=== PATIENT | female | born 1965 | race Caucasian/White ===

== ENCOUNTER → 2016-12-17 | Outpatient (CLI) | payer BC, OTHER ==
[~2016-12-17] MED LIST: BENZ56AE TP; DCS100C PO; ESTR2TAB PO; FLC100T1 PO; HYDR-3720 PO; IBP800T PO; TRM50T PO
--- NOTE | 2016-12-19 09:31 | Diagnostic Imaging Report ---
EXAMINATION: Bilateral screening mammogram 2D views with tomosynthesis. The current study was also evaluated with a Computer Aided Detection (CAD) system. INDICATION: Screening. PERSONAL HISTORY: No current complaints stated on the questionnaire. COMPARISON: 09/18/2015. FINDINGS: The breasts are composed of heterogeneously dense parenchyma which may decrease mammographic sensitivity. Benign-appearing calcifications are seen. Allowing for technique and positional differences, no suspicious change is seen. IMPRESSION: No significant change. ACR BI-RADS Category 2: Benign findings. Result letter will be mailed to the patient. Note: At least 10% of breast cancer is not imaged by mammography. Dictated by: Dictated on workstation # [id number]
== END ==
LOC: RAD 14:24
PROVIDERS: ATTEND Family Medicine
DX: Z12.31 Encounter for screening mammogram for malignant neoplasm of breast (principal)
CPT/HCPCS: 77067

== ENCOUNTER 2017-06-08 05:39 | Outpatient (CLI) | payer BC, OTHER ==
[~2017-06-08] VITALS: Ht 160 cm; Wt 58.1 kg
== END 2017-06-08 13:45 ==
LOC: PREOP 05:39
PROVIDERS: ATTEND Surgery
DX: Z01.818 Encounter for other preprocedural examination (principal); K62.89 Other specified diseases of anus and rectum; L29.9 Pruritus, unspecified

== ENCOUNTER 2017-06-10 07:28 | Day surgery (SDC) | payer BC, OTHER ==
[~2017-06-10] VITALS: Ht 160 cm; Wt 58.1 kg
[2017-06-10] MEDS ORDERED: LACTATED RINGERS 1,000 ML IV PRN (07:39)
[2017-06-10 07:45] VITALS: BP 94/59
[2017-06-10] MEDS ORDERED: ceFAZolin INJECTION 1,000 MG in NS (IVPB) 100 ML IV ONE (07:45)
[2017-06-10] MEDS ORDERED: BUP/EPI 0.5% 1:200,000 (SENSORCAINE) 30 ML VIAL ONE (08:40)
[2017-06-10] MEDS ORDERED: proPOfol 200 MG/20 ML (DIPRIVAN) VIAL IV ONE (09:19)
[2017-06-10] MEDS ORDERED: MIDAZOLAM 2 MG/2 ML (VERSED) VIAL ONE (09:20)
[2017-06-10] MEDS ORDERED: LIDOCAINE PF 2% 5 ML (XYLOCAINE) VIAL ONE (09:52)
--- NOTE | 2017-06-10 10:06 | Progress Note-Pre Operative ---
Pre-Operative Progress Note H&P Reviewed The H&P was reviewed, patient examined and no changes noted. Date Seen by Provider: Jun 04, 2017 Time Seen by Provider: 14:00 Date H&P Reviewed: Jun 10, 2017 Time H&P Reviewed: 10:06 Pre-Operative Diagnosis: Anal lesion BINH CASTILLO MD Jun 10, 2017 10:06 am
--- NOTE | 2017-06-10 10:39 | Operative Report ---
Operative Report Date of Procedure/Surgery Jun 10, 2017 Surgeon (s) BINH CASTILLO MD Hr Clerk (s): N/A Post-Operative Diagnosis Anal skin lesion at 8 o'clock position. Normal flexible sigmoidoscopy Procedure Performed Exam under anesthetic Flexible sigmoidoscopy Wedge biopsy of anal skin Description of Procedure Anesthesia Type: MAC Estimated blood loss (mL): None Specimen(s) collected/removed Anal skin Description of the Procedure Indication for the procedure: This lady presented with chronic pruritus ani and a very small skin nodule over the perianal region, at about 8 o'clock position. She had undergone colonoscopy two years ago with no polyps She was offered an examination under anesthetic to identify the possible pathology, flexible sigmoidoscopy to rule out rectal lesions and perform a wedge biopsy of the anal skin margin. Informed consent was obtained after reviewing the procedure in detail. Description of the procedure: She was initially placed supine on the operating table and our COOK ENCHILADA administered sedation, monitoring her vital signs. Ancef 1 g was administered intravenously as prophylaxis against wound infection and subsequently, she was placed in combined lithotomy position, her legs being supported on stirrups. Exam under anesthetic: Mild degree of external hemorrhoids and a 3 mm skin nodule at 8 o'clock position were identified. Rectal examination was unremarkable. Flexible sigmoidoscopy: The scope was introduced into the rectum and advanced to the sigmoid colon. It was then withdrawn slowly and the mucosa examined in a systematic fashion. Finding: A very mild degree of internal hemorrhoids. No polyps were found Wedge biopsy of anal skin: 0.5 percent Marcaine with epinephrine was infiltrated subcutaneously at about 8 o'clock position and a wedge of skin, about 3 mm long by 2 mm in width excised. Hemostasis was achieved using cautery and the defect closed with interrupted 4-0 vicryl sutures. A nonadherent dressing was then applied She tolerated the procedure well and was taken back to the nursing area in a stable condition. Findings of the Procedure See op report Allergies and Home Medications Allergies Coded Allergies: No Known Drug Allergies (Unverified , 06/08/17) Home Medications Estradiol 2 Mg Tablet, 2 MG PO BID, (Reported) Patient Home Medication List Home Medication List Reviewed: Yes BINH CASTILLO MD Jun 10, 2017 10:39 am
--- NOTE | 2017-06-10 10:40 | Discharge Inst-Simple/Standard ---
Discharge Inst-Standard Discharge Medications New, Converted or Re-Newed RX: Other Patient Instructions/Follow Up Plan of Care/Instructions/FU: We will call with pathology reports. Activity as Tolerated: Yes Discharge Diet: No Restrictions BINH CASTILLO MD Jun 10, 2017 10:40 am
[2017-06-10] MEDS ORDERED: MEPERIDINE (DEMEROL) INJ 50 MG/ML IVP PRN (10:45)
[2017-06-10] MEDS ORDERED: morphine INJ 10 MG/ML 1ML (SYR OR VIAL) IVP PRN (10:45)
[2017-06-10] MEDS ORDERED: ONDANSETRON 4 MG/2 ML (SDV) Z0FRAN IVP PRN (10:45)
[2017-06-10 11:25] VITALS: BP 105/66
[2017-06-10 11:26] VITALS: BP 105/66
[2017-06-10 11:55] VITALS: BP 106/64
--- NOTE | 2017-06-10 14:01 | Anesthesia-General Post-Op ---
MAC Patient Condition Mental Status/LOC: Same as Preop Cardiovascular: Satisfactory Nausea/Vomiting: Absent Respiratory: Satisfactory Pain: Controlled Complications: Absent Post Op Complications Complications None Follow Up Care/Instructions Patient Instructions None needed. Anesthesiology Discharge Order Discharge Order Patient is doing well, no complaints, stable vital signs, no apparent adverse anesthesia problems. No complications reported per nursing. MEMO JACOB CRNA Jun 10, 2017 14:01
--- OUTSIDE RECORDS SUMMARY | 2017-06-11 09:09 | XMS REPORT | Continuity of Care Document ---
Author Author [facility] Organization [facility] Address Unknown Phone Unavailable Allergies Active Description Code Type Severity Reaction Onset Reported/Identified Relationship to Patient Clinical Status Yes No Known Drug Allergies [id number] Drug Allergy Unknown N/A 06/08/2017 Medications There is no data. 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 08/24/2013 JOHN MARIO MD, Ot 218.2 SUBSEROUS LEIOMYOMA 08/24/2013 JOHN MARIO MD Ot 285.9 ANEMIA NOS 08/24/2013 JOHN MARIO MD Ot 617.0 UTERINE ENDOMETRIOSIS 08/24/2013 JOHN MARIO MD, Ot 617.1 OVARIAN ENDOMETRIOSIS 08/24/2013 JOHN MARIO MD, Ot 617.3 PELV PERIT ENDOMETRIOSIS 08/24/2013 JOHN MARIO MD, Ot 618.4 UTERVAGINAL PROLAPSE NOS 08/24/2013 JOHN MARIO MD Ot 620.1 CORPUS LUTEUM CYST 08/24/2013 JOHN MARIO MD Ot 625.6 FEM STRESS INCONTINENCE 08/24/2013 JOHN MARIO MD Ot 629.89 OTHER SPECIFIED DISORDERS OF FEMALE CLARK 08/24/2013 JOHN MARIO MD Ot 709.09 OTHER DYSCHROMIA 08/24/2013 JOHN MARIO MD Ot 788.20 RETENTION OF URINE NOS 08/28/2013 JOHN MARIO MD Ot 276.8 HYPOPOTASSEMIA 08/28/2013 JOHN MARIO MD, Ot 285.9 ANEMIA NOS 08/28/2013 JOHN MARIO MD Tamara Ot 560.1 PARALYTIC ILEUS 08/28/2013 SHELBI TILLMAN, JOHN Tamara Ot 564.00 UNSPEC CONSTIPATION 08/28/2013 SHELBI TILLMAN, JOHN Tamara Ot 788.20 RETENTION OF URINE NOS 09/07/2014 NAOMI KNIGHT THERAPEUTIC CASE MANAGER Ot V76.12 09/25/2014 Ot V76.12 09/25/2014 Ot 715.31 09/25/2014 Ot V76.12 09/25/2014 Ot 793.82 09/25/2014 Ot V76.12 09/25/2014 NAOMI KNIGHT [facility] Ot V76.12 09/25/2014 SHELBI TILLMAN, JOHN Tamara Ot 218.9 09/25/2014 SHELBI TILLMAN, JOHN Mcdonald Ot 285.9 09/25/2014 SHELBI TILLMAN, JOHN Mcdonald Ot 618.4 09/25/2014 SHELBI TILLMAN, JOHN Mcdonald Ot 625.6 09/25/2014 SHELBI TILLMAN, JOHN Mcdonald Ot V72.63 09/25/2014 SHELBI TILLMAN, JOHN Mcdonald Ot V74.8 09/25/2014 NAOMI KNIGHTP Ot V76.12 05/04/2015 DRISS TILLMAN, OLIVER Bhatt Ot 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 05/04/2015 DRISS TILLMAN, OLIVER Bhatt Ot K63.3 ULCER OF INTESTINE 05/04/2015 DRISS TILLMAN, OLIVER Bhatt Ot Z12.11 ENCOUNTER FOR SCREENING FOR MALIGNANT NE 05/04/2015 DRISS TILLMAN, OLIVER Bhatt Ot Z80.0 FAMILY HISTORY OF MALIGNANT NEOPLASM OF 05/24/2015 OLIVER NAQVI MD Ot D17.5 05/24/2015 OLIVER NAQVI MD Ot K63.3 05/24/2015 OLIVER NAQVI MD Ot Z12.11 05/24/2015 OLIVER NAQVI MD Ot Z80.0 12/20/2015 PEREZ DIAZ APRN Ot Z12.31 ENCNTR SCREEN MAMMOGRAM FOR MALIGNANT NE 07/13/2016 Ot V76.12 OT SCREEN MAMMO-MALIGN NEOPLASM OF KP 07/13/2016 Ot 793.82 INCONCLUSIVE MAMMOGRAM 07/13/2016 Ot V76.12 OTH SCREEN MAMMO-MALIGN NEOPLASM OF KP 07/13/2016 NAOMI KNIGHT Ot V76.12 OTH SCREEN MAMMO-MALIGN NEOPLASM OF KP 07/13/2016 JOHN MARIO MD Ot 218.9 UTERINE LEIOMYOMA NOS 07/13/2016 JOHN MARIO MD Ot 285.9 ANEMIA NOS 07/13/2016 JOHN MARIO MD Ot 618.4 UTERVAGINAL PROLAPSE NOS 07/13/2016 JOHN MARIO MD Ot 625.6 FEM STRESS INCONTINENCE 07/13/2016 JOHN MARIO MD Ot V72.63 PRE-PROCEDURAL LABORATORY EXAMINATION 07/13/2016 JOHN MARIO MD Ot V74.8 SCREEN-BACTERIAL DIS NEC 07/13/2016 NAOMI KNIGHT Ot V76.12 OTH SCREEN MAMMO-MALIGN NEOPLASM OF KP 07/13/2016 DRISS TILLMAN, OLIVER Bhatt Ot Z01.818 ENCOUNTER FOR OTHER PREPROCEDURAL EXAMIN 07/13/2016 DRISS TILLMAN, OLIVER Bhatt Ot Z12.11 ENCOUNTER FOR SCREENING FOR MALIGNANT NE 07/13/2016 DRISS TILLMAN, OLIVER Bhatt Ot Z80.0 FAMILY HISTORY OF MALIGNANT NEOPLASM OF 07/13/2016 PEREZ DIAZ APRN Ot Z12.31 ENCNTR SCREEN MAMMOGRAM FOR MALIGNANT NE 12/12/2016 Ot 793.82 INCONCLUSIVE MAMMOGRAM 12/12/2016 Ot V76.12 OTH SCREEN MAMMO-MALIGN NEOPLASM OF KP 12/12/2016 NAOMI KNIGHT Ot V76.12 OTH SCREEN MAMMO-MALIGN NEOPLASM OF KP 12/12/2016 JOHN MARIO MD Ot 218.9 UTERINE LEIOMYOMA NOS 12/12/2016 JOHN MARIO MD Ot 285.9 ANEMIA NOS 12/12/2016 JOHN MARIO MD Ot 618.4 UTERVAGINAL PROLAPSE NOS 12/12/2016 JOHN MARIO MD Ot 625.6 FEM STRESS INCONTINENCE 12/12/2016 JOHN MARIO MD Ot V72.63 PRE-PROCEDURAL LABORATORY EXAMINATION 12/12/2016 JOHN MARIO MD Ot V74.8 SCREEN-BACTERIAL DIS NEC 12/12/2016 NAOMI KNIGHT Ot V76.12 OTH SCREEN MAMMO-MALIGN NEOPLASM OF KP 12/12/2016 OLIVER NAQVI MD Ot Z01.818 ENCOUNTER FOR OTHER PREPROCEDURAL EXAMIN 12/12/2016 OLIVER NAQVI MD Ot Z12.11 ENCOUNTER FOR SCREENING FOR MALIGNANT NE 12/12/2016 OLIVER NAQVI MD Ot Z80.0 FAMILY HISTORY OF MALIGNANT NEOPLASM OF 12/12/2016 PEREZ DIAZ HAWK MISSILE SYSTEM CREWMEMBER Ot Z12.31 ENCNTR SCREEN MAMMOGRAM FOR MALIGNANT NE 12/15/2016 Ot 793.82 INCONCLUSIVE MAMMOGRAM 12/15/2016 Ot V76.12 OTH SCREEN MAMMO-MALIGN NEOPLASM OF KP 12/15/2016 NAOMI KNIGHT Ot V76.12 OTH SCREEN MAMMO-MALIGN NEOPLASM OF KP 12/15/2016 JOHN MARIO MD Ot 218.9 UTERINE LEIOMYOMA NOS 12/15/2016 SHELBI TILLMAN, JOHN Mcdonald Ot 285.9 ANEMIA NOS 12/15/2016 JOHN MARIO MD Ot 618.4 UTERVAGINAL PROLAPSE NOS 12/15/2016 JOHN MARIO MD Ot 625.6 FEM STRESS INCONTINENCE 12/15/2016 JOHN MARIO MD Ot V72.63 PRE-PROCEDURAL LABORATORY EXAMINATION 12/15/2016 JOHN MARIO MD Ot V74.8 SCREEN-BACTERIAL DIS NEC 12/15/2016 NAOMI KNIGHT Ot V76.12 OTH SCREEN MAMMO-MALIGN NEOPLASM OF KP 12/15/2016 OLIVER NAQVI MD Ot Z01.818 ENCOUNTER FOR OTHER PREPROCEDURAL EXAMIN 12/15/2016 OLIVER NAQVI MD Ot Z12.11 ENCOUNTER FOR SCREENING FOR MALIGNANT NE 12/15/2016 OLIVER NAQVI MD Ot Z80.0 FAMILY HISTORY OF MALIGNANT NEOPLASM OF 12/15/2016 PEREZ DIAZ [employer]SI[employer] CREWMEMBER Ot Z12.31 ENCNTR SCREEN MAMMOGRAM FOR MALIGNANT NE 12/31/2016 SHERI TILLMAN, NICHOL See Ot Z12.31 ENCNTR SCREEN MAMMOGRAM FOR MALIGNANT NE 06/10/2017 Ot 793.82 INCONCLUSIVE MAMMOGRAM 06/10/2017 Ot V76.12 OTH SCREEN MAMMO-MALIGN NEOPLASM OF KP 06/10/2017 NAOMI KNIGHT Ot V76.12 OTH SCREEN MAMMO-MALIGN NEOPLASM OF KP 06/10/2017 JOHN MARIO MD Ot 218.9 UTERINE LEIOMYOMA NOS 06/10/2017 SHELBI TILLMAN, JOHN Mcdonald Ot 285.9 ANEMIA NOS 06/10/2017 JOHN MARIO MD Ot 618.4 UTERVAGINAL PROLAPSE NOS 06/10/2017 JOHN MARIO MD Ot 625.6 FEM STRESS INCONTINENCE 06/10/2017 JOHN MARIO MD Ot V72.63 PRE-PROCEDURAL LABORATORY EXAMINATION 06/10/2017 JOHN MARIO MD Ot V74.8 SCREEN-BACTERIAL DIS NEC 06/10/2017 NAOMI KNIGHT Ot V76.12 OTH SCREEN MAMMO-MALIGN NEOPLASM OF KP 06/10/2017 DRISS TILLMAN, OLIVER Bhatt Ot Z01.818 ENCOUNTER FOR OTHER PREPROCEDURAL EXAMIN 06/10/2017 OLIVER NAQVI MD Ot Z12.11 ENCOUNTER FOR SCREENING FOR MALIGNANT NE 06/10/2017 OLIVER NAQVI MD Ot Z80.0 FAMILY HISTORY OF MALIGNANT NEOPLASM OF 06/10/2017 PEREZ DIAZ APRN Ot Z12.31 ENCNTR SCREEN MAMMOGRAM FOR MALIGNANT NE 06/10/2017 SHERI TILLMAN, NICHOL See Ot Z12.31 ENCNTR SCREEN MAMMOGRAM FOR MALIGNANT NE 06/10/2017 JONATHAN TILLMAN, BINH Carey Ot K62.89 OTHER SPECIFIED DISEASES OF ANUS AND REC 06/10/2017 BINH CASTILLO MD Ot L29.9 PRURITUS, UNSPECIFIED 06/10/2017 BINH CASTILLO MD Ot Z01.818 ENCOUNTER FOR OTHER PREPROCEDURAL EXAMIN Procedures There is no data. Results There is no data. Encounters ACCT No. Visit Date/Time Discharge Status Pt. Type Provider Facility Loc./Unit Complaint [id number] 06/10/2017 07:28:00 06/10/2017 12:00:00 DIS Outpatient BINH CASTILLO MD [facility] RECTAL PAIN/PRURITUS [id number] 06/08/2017 05:39:00 06/08/2017 13:45:00 DIS Outpatient BINH CASTILLO MD [facility] PREOP RECTAL PAIN/ PRURITUS [id number] 12/17/2016 14:24:00 12/17/2016 23:59:59 CLS Outpatient NICHOL WADE MD [facility] RAD SCREENING [id number] 12/19/2015 14:36:00 12/19/2015 23:59:59 CLS Outpatient PEREZ DIAZ APRN [facility] RAD SCREENING [id number] 05/04/2015 08:27:00 05/04/2015 11:30:00 DIS Outpatient OLIVER NAQVI MD [facility] SCREENING [id number] 05/02/2015 05:33:00 05/02/2015 23:59:59 CLS Outpatient OLIVER NAQVI MD [facility] PREOP SCREENING [id number] 08/25/2014 13:24:00 08/25/2014 23:59:59 CLS Outpatient NAOIM KNIGHT [facility] RAD SCREENING [id number] 08/26/2013 16:56:00 08/28/2013 14:45:00 DIS Inpatient JOHN MARIO MD [facility] WS LOWER ABD PAIN AND DISTENTION [id number] 08/22/2013 06:08:00 08/24/2013 17:40:00 DIS Outpatient JOHN MARIO MD [facility] UTEROVAGINAL PROLAPSE; STRESS URINARY INCONTINENCE [id number] 08/17/2013 13:21:00 08/17/2013 23:59:59 CLS Outpatient JOHN MARIO MD [facility] PREOP UTEROVAGINAL PROLAPSE; STRESS URINARY INCONTINENCE [id number] 05/02/2013 10:23:00 05/02/2013 23:59:59 CLS Outpatient NAOMI KNIGHT [facility] RAD SCREENING [id number] 03/19/2012 14:01:00 Document Registration [id number] 02/05/2011 15:11:00 Document Registration [id number] 06/07/2010 13:36:00 Document Registration [id number] 04/15/2010 16:30:00 Document Registration [id number] 01/09/2010 13:05:00 Document Registration [id number] 12/01/2016 17:35:37 12/01/2016 23:59:[address] [facility] Outpatient
== END 2017-06-10 12:00 | disposition home or self-care (01) ==
LOC: SDC 07:28
PROVIDERS: ATTEND Surgery
DX: K62.89 Other specified diseases of anus and rectum (principal); L85.9 Epidermal thickening, unspecified; L29.0 Pruritus ani; Z80.0 Family history of malignant neoplasm of digestive organs
CPT/HCPCS: 87081

== ENCOUNTER → 2018-01-29 | Outpatient (CLI) | payer BC, OTHER ==
--- NOTE | 2018-01-29 16:23 | Diagnostic Imaging Report ---
INDICATION: Routine screening. COMPARISON: 12/17/2016 and 12/19/2015. TECHNIQUE: 2D and 3D bilateral screening mammography was performed with CAD. FINDINGS: Both breasts are heterogeneously dense, limiting the sensitivity of mammography. The parenchymal pattern is stable. No mass or malignant appearing microcalcifications are seen. The axillae are unremarkable. IMPRESSION: No mammographic features suspicious for malignancy are identified. ACR BI-RADS Category 1: Negative. Result letter will be mailed to the patient. Note: At least 10% of breast cancer is not imaged by mammography. Dictated by: Dictated on workstation # [id number]
== END ==
LOC: RAD 13:34
PROVIDERS: ATTEND Nurse Practitioner Family
DX: Z12.31 Encounter for screening mammogram for malignant neoplasm of breast (principal)
CPT/HCPCS: 77067

== ENCOUNTER → 2019-02-02 | Outpatient (CLI) | payer BC, OTHER ==
--- NOTE | 2019-02-02 18:26 | Diagnostic Imaging Report ---
INDICATION: Routine screening. Comparison is made with prior mammograms from 01/29/2018 and 12/17/2016. 2-D and 3-D bilateral screening mammography was performed. The current study was also evaluated with a Computer Aided Detection (CAD) system. 3-D tomosynthesis was also performed and reviewed. FINDINGS: Both breasts remain heterogeneously dense, limiting the sensitivity of mammography. No mass or malignant-appearing microcalcifications are seen. Axillae are unremarkable. IMPRESSION: No mammographic features suspicious for malignancy are identified. ACR BI-RADS Category 1: Negative. Result letter will be mailed to the patient. Note: At least 10% of breast cancer is not imaged by mammography. Dictated by: Dictated on workstation # [id number]
== END ==
LOC: RAD 14:32
PROVIDERS: ATTEND Obstetrics & Gynecology
DX: Z12.31 Encounter for screening mammogram for malignant neoplasm of breast (principal)
CPT/HCPCS: 77067

== ENCOUNTER → 2020-02-29 | Outpatient (CLI) | payer OTHER ==
--- NOTE | 2020-02-29 10:26 | Diagnostic Imaging Report ---
Indication: Routine screening. Correlation is made with prior mammogram from 02/02/2019, 01/29/2018. 2-D and 3-D bilateral screening mammography was performed with CAD. Both breasts are heterogeneously dense, limiting the sensitivity of mammography. No mass or malignant appearing microcalcifications are seen. Axillae are unremarkable. IMPRESSION: BI-RADS Category 1 No mammographic features suspicious for malignancy are identified. ACR BI-RADS Category 1: Negative. Result letter will be mailed to the patient. Note: At least 10% of breast cancer is not imaged by mammography. Dictated by: Dictated on workstation # [id number]
== END ==
LOC: RAD 07:17
PROVIDERS: ATTEND Nurse Practitioner Family
DX: Z12.31 Encounter for screening mammogram for malignant neoplasm of breast (principal)
CPT/HCPCS: 77063; 77067

== ENCOUNTER → 2021-04-19 | Outpatient (CLI) | payer OTHER ==
[~2021-04-19] MED LIST changes: -ESTR2TAB PO; +ESTR2TAB3 PO
--- NOTE | 2021-04-22 09:02 | Diagnostic Imaging Report ---
Digital mammogram, bilateral screening COMPARISON: This study was compared to the prior exams of 02/29/2020, 02/02/2019, and 01/29/2018. At this time, there are no current complaints. The current study was also evaluated with a Computer Aided Detection (CAD) system. FINDINGS: The fibroglandular tissue in both breasts is heterogeneously dense. This does limit the sensitivity of this exam. Overall, there does not appear to have been any significant change when compared to the prior study. No primary or secondary sign of malignancy is noted. IMPRESSION: There is no radiographic evidence for malignancy. ACR category 1. ACR BI-RADS Category 1: Negative. Result letter will be mailed to the patient. Note: At least 10% of breast cancer is not imaged by mammography. Dictated on workstation # [id number]
== END ==
LOC: RAD 14:00
PROVIDERS: ATTEND Nurse Practitioner Family
DX: Z12.31 Encounter for screening mammogram for malignant neoplasm of breast (principal)
CPT/HCPCS: 77063; 77067

== ENCOUNTER → 2022-05-15 | Outpatient (CLI) | payer OTHER ==
--- NOTE | 2022-05-15 12:35 | Diagnostic Imaging Report ---
INDICATION: Routine screening. COMPARISON: 04/19/2021 and 02/29/2020. TECHNIQUE: 2D and 3D bilateral screening mammography was performed with CAD. FINDINGS: Both breasts are heterogeneously dense, limiting the sensitivity of mammography. The overall parenchymal pattern is stable. No mass or malignant-appearing microcalcifications are seen. The axillae are unremarkable. IMPRESSION: No mammographic features suspicious for malignancy are identified. ACR BI-RADS Category 1: Negative. Result letter will be mailed to the patient. Note: At least 10% of breast cancer is not imaged by mammography. Dictated by: Dictated on workstation # [id number]
== END ==
LOC: RAD 10:30
PROVIDERS: ATTEND Nurse Practitioner Family
DX: Z12.31 Encounter for screening mammogram for malignant neoplasm of breast (principal)
CPT/HCPCS: 77063; 77067

== ENCOUNTER 2023-01-09 10:20 | Outpatient (CLI) | payer OTHER ==
[~2023-01-09] VITALS: Ht 160 cm; Wt 59.0 kg
[2023-01-09] MEDS ORDERED: ATOR10TA66 PO (15:42)
== END 2023-01-09 14:00 | disposition home or self-care (01) ==
LOC: PREOP 10:20
PROVIDERS: ATTEND Specialist
DX: Z01.818 Encounter for other preprocedural examination (principal)

== ENCOUNTER 2023-01-16 09:41 | Day surgery (SDC) | payer OTHER ==
[~2023-01-16] VITALS: Ht 160 cm; Wt 59.0 kg
[~2023-01-16 09:41] MED LIST changes: +ATOR10TA66 PO
[2023-01-16] MEDS: TETRACAINE 0.5% OPHTH SOLN 5 ML BTL OU PRN ×4 (10:44→11:03)
[2023-01-16] MEDS ORDERED: MOXIFLOXACIN OPHTH SOLN 5 MG/ML 0.5 ML SYRINGE OP ONE (10:45)
[2023-01-16] MEDS ORDERED: TIMOLOL 0.5% (CATARACTS) 0.3 ML BTL OU PRN (10:45)
[2023-01-16] MEDS ORDERED: LIDOCAINE PF 1% 2 ML VIAL IR PRN (10:45)
[2023-01-16] MEDS ORDERED: POVIDONE IODINE OPHTH SOLN 5% 30 ML OP ONE (10:45)
[2023-01-16] MEDS: TROPICAMIDE 1% OPH SOLN (MYDRIACYL) 15 ML BTL OP SCH ×3 (10:52→11:03)
[2023-01-16] MEDS: PHENYLEPHRINE 10% OPHTH SOLN 5 ML BTL OU SCH ×3 (10:52→11:03)
[2023-01-16 11:00] VITALS: BP 127/85
--- NOTE | 2023-01-16 11:36 | Ophthalmologist Pre-Op Note ---
Pre-Operative Progress Note H&P Reviewed The H&P was reviewed, patient examined and no changes noted. Date H&P Reviewed: Jan 16, 2023 Time H&P Reviewed: 11:35 Pre-Op Dx Cataract, Right Eye CHERELLE CABRERA MD Jan 16, 2023 11:35
[2023-01-16] MEDS ORDERED: MIDAZOLAM INJ 2 MG/2 ML VIAL ONE (11:39)
--- NOTE | 2023-01-16 11:59 | Ophthalmology Operative Report ---
Cataract removal/placement IOL PREOPERATIVE DIAGNOSIS: Cataract Right Eye POSTOPERATIVE DIAGNOSIS: Cataract Right Eye PROCEDURE: Cataract removal and placement of posterior chamber implant, right eye SURGEON: Billy Cabrera ANESTHESIA: Topical with sedation COMPLICATIONS: None ESTIMATED BLOOD LOSS: Minimal DESCRIPTION OF PROCEDURE: After proper informed consent was obtained, the patient, a 57 female, was taken to the Operating Room and the right eye was anesthetized with tetracaine. The right eye was then prepped and draped in the usual manner. A wire lid speculum was placed. A paracentesis was made at the left hand position. Preservative free lidocaine was injected into the anterior chamber followed by viscoelastic. A clear corneal incision was made in the temporal position. A capsulorrhexis was preformed and the central nuclear and cortical material were removed. The posterior capsule was polished and Kemar 12.0 CNA0T0 IOL was placed into the capsular bag. The residual viscoelastic was aspirated and balanced saline solution was injected into the anterior chamber. Moxifloxacin was injected into the anterior chamber. The wound was checked and found to be water tight. The patient tolerated the procedure well without complications. BILLY CABRERA MD Jan 16, 2023 11:59
[2023-01-16 12:05] VITALS: BP 125/83
--- NOTE | 2023-01-16 14:32 | Anesthesia-General Post-Op ---
MAC Patient Condition Mental Status/LOC: Same as Preop Cardiovascular: Satisfactory Nausea/Vomiting: Absent Respiratory: Satisfactory Pain: Controlled Complications: Absent Post Op Complications Complications None Follow Up Care/Instructions Patient Instructions None needed. Anesthesiology Discharge Order Discharge Order Patient is doing well, no complaints, stable vital signs, no apparent adverse anesthesia problems. No complications reported per nursing. MARYANN MURRAY CRNA Jan 16, 2023 14:32
== END 2023-01-16 12:10 | disposition home or self-care (01) ==
LOC: SDC 09:41
PROVIDERS: ATTEND Specialist
DX: H26.9 Unspecified cataract (principal)
CPT/HCPCS: 66984; V2632

== ENCOUNTER 2023-02-03 10:06 | Outpatient (CLI) | payer OTHER ==
[~2023-02-03] VITALS: Ht 160 cm; Wt 59.0 kg
[2023-02-04] MEDS ORDERED: TUME1CAP PO (10:54)
[2023-02-04] MEDS ORDERED: OMEG100032 PO (10:54)
[2023-02-04] MEDS ORDERED: CINN500C2 PO (10:54)
== END 2023-02-04 11:12 | disposition home or self-care (01) ==
LOC: PREOP 10:06
PROVIDERS: ATTEND Specialist
DX: Z01.818 Encounter for other preprocedural examination (principal)

== ENCOUNTER 2023-02-06 08:44 | Day surgery (SDC) | payer OTHER ==
[~2023-02-06] VITALS: Ht 160 cm; Wt 59.0 kg
[~2023-02-06 08:44] MED LIST changes: +CINN500C2 PO; +OMEG100032 PO; +TUME1CAP PO
[2023-02-06] MEDS ORDERED: POVIDONE IODINE OPHTH SOLN 5% 30 ML OP ONE (08:45)
[2023-02-06] MEDS ORDERED: TIMOLOL 0.5% (CATARACTS) 0.3 ML BTL OU PRN (08:45)
[2023-02-06] MEDS ORDERED: MOXIFLOXACIN OPHTH SOLN 5 MG/ML 0.5 ML SYRINGE OP ONE (08:45)
[2023-02-06] MEDS ORDERED: LIDOCAINE PF 1% 2 ML VIAL IR PRN (08:45)
[2023-02-06] MEDS ORDERED: MIDAZOLAM INJ 2 MG/2 ML VIAL ONE (08:56)
[2023-02-06] MEDS: TETRACAINE 0.5% OPHTH SOLN 5 ML BTL OU PRN ×4 (09:08→09:32)
[2023-02-06] MEDS: PHENYLEPHRINE 10% OPHTH SOLN 5 ML BTL OU SCH ×3 (09:32→09:41)
[2023-02-06] MEDS: TROPICAMIDE 1% OPH SOLN (MYDRIACYL) 15 ML BTL OP SCH ×2 (09:32→09:41)
[2023-02-06 09:37] VITALS: BP 107/72
--- NOTE | 2023-02-06 09:56 | Ophthalmologist Pre-Op Note ---
Pre-Operative Progress Note H&P Reviewed The H&P was reviewed, patient examined and no changes noted. Date H&P Reviewed: Feb 06, 2023 Time H&P Reviewed: 09:55 Pre-Op Dx Cataract, Left Eye CHERELLE CABRERA MD Feb 06, 2023 09:56
[2023-02-06] MEDS ORDERED: proPOfol INJECTION 200 MG/20 ML VIAL IV ONE (10:08)
--- NOTE | 2023-02-06 10:16 | Ophthalmology Operative Report ---
Cataract removal/placement IOL PREOPERATIVE DIAGNOSIS: Cataract Left Eye POSTOPERATIVE DIAGNOSIS: Cataract Left Eye PROCEDURE: Cataract removal and placement of posterior chamber implant, left eye SURGEON: Billy Cabrera ANESTHESIA: Topical with sedation COMPLICATIONS: None ESTIMATED BLOOD LOSS: Minimal DESCRIPTION OF PROCEDURE: After proper informed consent was obtained, the patient, a 57 female, was taken to the Operating Room and the left eye was anesthetized with tetracaine. The left eye was then prepped and draped in the usual manner. A wire lid speculum was placed. A paracentesis was made at the left hand position. Preservative free lidocaine was injected into the anterior chamber followed by viscoelastic. A clear corneal incision was made in the temporal position. A capsulorrhexis was preformed and the central nuclear and cortical material were removed. The posterior capsule was polished and an Kemar 10.5 CNA0T0 was placed into the capsular bag. The residual viscoelastic was aspirated and balanced saline solution was injected into the anterior chamber. Moxifloxacin was injected into the anterior chamber. The wound was checked and found to be water tight. The patient tolerated the procedure well without complications. BILLY CABRERA MD Feb 06, 2023 10:16
[2023-02-06 10:35] VITALS: BP 104/66
--- NOTE | 2023-02-06 12:51 | Anesthesia-General Post-Op ---
MAC Patient Condition Mental Status/LOC: Same as Preop Cardiovascular: Satisfactory Nausea/Vomiting: Absent Respiratory: Satisfactory Pain: Controlled Complications: Absent Post Op Complications Complications None Follow Up Care/Instructions Patient Instructions None needed. Anesthesiology Discharge Order Discharge Order Patient was doing well after the procedure with no complaints, stable vital signs, no apparent adverse anesthesia problems. No complications reported per nursing. NGUYỄN GIPSON DO Feb 06, 2023 12:51
== END 2023-02-06 10:37 | disposition home or self-care (01) ==
LOC: SDC 08:44
PROVIDERS: ATTEND Specialist
DX: H25.9 Unspecified age-related cataract (principal)